=== PATIENT | male | born 1960 | race Hispanic/Latino ===

== ENCOUNTER 2019-04-29 20:44 | Emergency (ER) | payer OTHER ==
[2019-04-29] MEDS ORDERED: ATIVAN ONE (20:51)
[2019-04-29 21:08] LABS: Basophils % (Auto) 0.2 % (0.0-1.8); Eosinophils # (Auto) 0.2 K/mm3 (0.0-0.4); Eosinophils % (Auto) 2.6 % (0.0-4.3); Hematocrit 47.7 % (35.5-45.6); Hemoglobin 16.1 gm/dl (11.8-15.2); Lymphocytes # (Auto) 2.5 K/mm3 (1.2-5.4); Lymphocytes % (Auto) 27.3 % (13.4-35.0); Mean Corpuscular HGB Conc 34 % (32-34); Mean Corpuscular Volume 102 fl (84-94); Monocytes # (Auto) 0.9 K/mm3 (0.0-0.8); Monocytes % (Auto) 9.4 % (0.0-7.3); Platelet Count 297 K/mm3 (140-440); Red Cell Distribution Width 14.1 % (13.2-15.2)
[2019-04-29] MEDS ORDERED: ATIVAN IM ONE (21:10)
[2019-04-29 21:19] LABS: INR 1.11 (0.87-1.13)
[2019-04-29 21:28] LABS: BUN/Creatinine Ratio 15; Blood Urea Nitrogen 17 mg/dL (9-20); Calcium 10.6 mg/dL (8.4-10.2); Hemolysis Index 3
--- NOTE | 2019-04-29 21:40 | Emergency Department Report ---
ED Altered Mental Status HPI - General Chief Complaint: Neuro Symptoms/Deficit Stated Complaint: ALTERED MENTAL STATUS Time Seen by Provider: 04/29/19 20:52 Source: EMS Mode of arrival: Stretcher Limitations: Altered Mental Status - History of Present Illness Initial Comments: Mr. vaca is a 58-year-old male was brought from a retail center for altered mental status. He walked into the clothing store after arriving by private auto. After walking down the aisle, store personally noticed abnormal behavior., He became less responsive. EMS noticed jerking movements. He's been nonverbal. EMS also observed diaphoresis. Normal blood glucose in route. Patient does not provide any history due to altered mental status. MD Complaint: altered mental status, decreased responsiveness -: Sudden Severity: severe Consistency of Symptoms: unknown Context: unknown Associated Symptoms: other (unable to be obtained from patient due to altered mental status) - Related Data Allergies Allergy/AdvReac Type Severity Reaction Status Date / Time No Known Allergies Allergy Unverified 04/29/19 20:49 ED Review of Systems ROS: Stated complaint: ALTERED MENTAL STATUS Other details as noted in HPI Comment: Unobtainable due to pts medical conditions (altered mental status) ED Past Medical Hx - Past Medical History Additional medical history: unknown - Surgical History Additional Surgical History: unknown - Social History Smoking Status: Unknown if ever smoked ED Physical Exam - General Limitations: Altered Mental Status General appearance: other (keeps eyes closed, jerking sensation in the extremities diaphoretic) - Head Head exam: Present: atraumatic, normocephalic - Eye Eye exam: Absent: scleral icterus, conjunctival injection - ENT ENT exam: Present: mucous membranes dry - Neck Neck exam: Present: normal inspection, full ROM. Absent: tenderness, meningismus - Respiratory Respiratory exam: Present: normal lung sounds bilaterally. Absent: respiratory distress, wheezes, rales, rhonchi - Cardiovascular Cardiovascular Exam: Present: normal rhythm, tachycardia, normal heart sounds - GI/Abdominal GI/Abdominal exam: Present: soft. Absent: distended, tenderness, guarding, rebound, rigid - Extremities Exam Extremities exam: Present: other (moves all extremities with semi-purposeful movement kicks his legs rolls around in bed) - Neurological Exam Neurological exam: Present: altered, other (yells obscenities with venipuncture) - Psychiatric Psychiatric exam: Present: agitated - Skin Skin exam: Present: diaphoretic ED Course Vital Signs 04/29/19 04/29/19 04/29/19 20:52 20:55 21:00 Temperature 99.2 F Pulse Rate 102 H 75 Respiratory 19 22 Rate Blood Pressure 179/112 O2 Sat by Pulse 99 98 97 Oximetry 04/29/19 04/29/19 04/29/19 21:18 21:30 22:02 Temperature Pulse Rate 72 80 99 H Respiratory 18 19 20 Rate Blood Pressure 191/108 191/108 O2 Sat by Pulse 96 98 99 Oximetry 04/29/19 04/29/19 04/29/19 22:16 22:30 22:46 Temperature Pulse Rate 74 76 107 H Respiratory 14 19 25 H Rate Blood Pressure 161/88 175/97 175/97 O2 Sat by Pulse 97 99 99 Oximetry 04/29/19 23:00 Temperature Pulse Rate 97 H Respiratory 21 Rate Blood Pressure 161/88 O2 Sat by Pulse 99 Oximetry - Lab Data Result diagrams: 04/29/19 21:00 04/29/19 21:00 Lab Results 04/29/19 04/29/19 04/29/19 Range/Units 20:56 21:00 21:00 WBC 9.2 (4.5-11.0) K/mm3 RBC 4.70 (3.65-5.03) M/mm3 Hgb 16.1 H (11.8-15.2) gm/dl Hct 47.7 H (35.5-45.6) % MCV 102 H (84-94) fl MCH 34 H (28-32) pg MCHC 34 (32-34) % RDW 14.1 (13.2-15.2) % Plt Count 297 (140-440) K/mm3 Lymph % (Auto) 27.3 (13.4-35.0) % [place] % (Auto) 9.4 H (0.0-7.3) % Eos % (Auto) 2.6 (0.0-4.3) % Baso % (Auto) 0.2 (0.0-1.8) % Lymph # 2.5 (1.2-5.4) K/mm3 [place] # 0.9 H (0.0-0.8) K/mm3 Eos # 0.2 (0.0-0.4) K/mm3 Baso # 0.0 (0.0-0.1) K/mm3 Seg Neutrophils % 60.5 (40.0-70.0) % Seg Neutrophils # 5.6 (1.8-7.7) K/mm3 PT 14.0 (12.2-14.9) Sec. INR 1.11 (0.87-1.13) APTT 44.5 H (24.2-36.6) Sec. Thrombin Time (15.1-19.6) Sec. Sodium (137-145) mmol/L Potassium (3.6-5.0) mmol/L Chloride (98-107) mmol/L Carbon Dioxide (22-30) mmol/L Anion Gap mmol/L BUN (9-20) mg/dL Creatinine (0.8-1.5) mg/dL Estimated GFR ml/min BUN/Creatinine Ratio % Glucose (75-100) mg/dL POC Glucose 139 H (70-105) Calcium (8.4-10.2) mg/dL Troponin T (0.00-0.029) ng/mL Urine Opiates Screen Urine Methadone Screen Ur Barbiturates Screen Ur Phencyclidine Scrn Ur Amphetamines Screen U Benzodiazepines Scrn Urine Cocaine Screen U Marijuana (THC) Screen Plasma/Serum Alcohol (0-0.07) % 04/29/19 04/29/19 04/29/19 Range/Units 21:00 21:00 22:05 WBC (4.5-11.0) K/mm3 RBC (3.65-5.03) M/mm3 Hgb (11.8-15.2) gm/dl Hct (35.5-45.6) % MCV (84-94) fl MCH (28-32) pg MCHC (32-34) % RDW (13.2-15.2) % Plt Count (140-440) K/mm3 Lymph % (Auto) (13.4-35.0) % [place] % (Auto) (0.0-7.3) % Eos % (Auto) (0.0-4.3) % Baso % (Auto) (0.0-1.8) % Lymph # (1.2-5.4) K/mm3 [place] # (0.0-0.8) K/mm3 Eos # (0.0-0.4) K/mm3 Baso # (0.0-0.1) K/mm3 Seg Neutrophils % (40.0-70.0) % Seg Neutrophils # (1.8-7.7) K/mm3 PT (12.2-14.9) Sec. INR (0.87-1.13) APTT (24.2-36.6) Sec. Thrombin Time 14.3 L (15.1-19.6) Sec. Sodium 142 (137-145) mmol/L Potassium 4.3 (3.6-5.0) mmol/L Chloride 104.4 (98-107) mmol/L Carbon Dioxide 21 L (22-30) mmol/L Anion Gap 21 mmol/L BUN 17 (9-20) mg/dL Creatinine 1.1 (0.8-1.5) mg/dL Estimated GFR > 60 ml/min BUN/Creatinine Ratio 15 % Glucose 134 H (75-100) mg/dL POC Glucose (70-105) Calcium 10.6 H (8.4-10.2) mg/dL Troponin T < 0.010 (0.00-0.029) ng/mL Urine Opiates Screen Urine Methadone Screen Ur Barbiturates Screen Ur Phencyclidine Scrn Ur Amphetamines Screen U Benzodiazepines Scrn Urine Cocaine Screen U Marijuana (THC) Screen Plasma/Serum Alcohol < 0.01 (0-0.07) % 04/29/19 Range/Units 22:13 WBC (4.5-11.0) K/mm3 RBC (3.65-5.03) M/mm3 Hgb (11.8-15.2) gm/dl Hct (35.5-45.6) % MCV (84-94) fl MCH (28-32) pg MCHC (32-34) % RDW (13.2-15.2) % Plt Count (140-440) K/mm3 Lymph % (Auto) (13.4-35.0) % [place] % (Auto) (0.0-7.3) % Eos % (Auto) (0.0-4.3) % Baso % (Auto) (0.0-1.8) % Lymph # (1.2-5.4) K/mm3 [place] # (0.0-0.8) K/mm3 Eos # (0.0-0.4) K/mm3 Baso # (0.0-0.1) K/mm3 Seg Neutrophils % (40.0-70.0) % Seg Neutrophils # (1.8-7.7) K/mm3 PT (12.2-14.9) Sec. INR (0.87-1.13) APTT (24.2-36.6) Sec. Thrombin Time (15.1-19.6) Sec. Sodium (137-145) mmol/L Potassium (3.6-5.0) mmol/L Chloride (98-107) mmol/L Carbon Dioxide (22-30) mmol/L Anion Gap mmol/L BUN (9-20) mg/dL Creatinine (0.8-1.5) mg/dL Estimated GFR ml/min BUN/Creatinine Ratio % Glucose (75-100) mg/dL POC Glucose (70-105) Calcium (8.4-10.2) mg/dL Troponin T (0.00-0.029) ng/mL Urine Opiates Screen Presumptive negative Urine Methadone Screen Presumptive negative Ur Barbiturates Screen Presumptive negative Ur Phencyclidine Scrn Presumptive negative Ur Amphetamines Screen Presumptive positive U Benzodiazepines Scrn Presumptive negative Urine Cocaine Screen Presumptive negative U Marijuana (THC) Screen Presumptive negative Plasma/Serum Alcohol (0-0.07) % - Radiology Data Radiology results: report reviewed CT head: No acute process according to radiology report - Medical Decision Making Upon arrival, code Stroke was activated due to nonverbal status. After my evaluation I felt the patient had acute metabolic encephalopathy more so than CVA. I discussed case with neurology. I canceled code stroke. He required sedation with IM lorazepam and haldol. Jerking motion stopped prior to medication administration. UDS is positive for methamphetamine. Methamphetamine intoxication with explain patient's presentation and hyperactive delirium. Awaiting sobriety. Will be discharged home once he is awake. When asked if he used drugs today he stated "not yet" Labs CT otherwise unremarkable. CBC chemistry within normal limits. Critical Care Time: Yes Critical care time in (mins) excluding proc time.: 40 Critical care attestation.: If time is entered above; I have spent that time in minutes in the direct care of this critically ill patient, excluding procedure time. 40 minutes of critical care time excluding procedures were used in the care of the patient. Patient required multiple assessments and interventions. I reviewed the electronic medical record. I spoke with consultants involved in the care of the patient. ED Disposition Clinical Impression: Methamphetamine intoxication, Acute drug intoxication with delirium Disposition: DC-01 TO HOME OR SELFCARE Is pt being admited?: No Does the pt Need Aspirin: No Condition: Stable Instructions: Methamphetamine Abuse (ED) Referrals: KEVIN PÉREZ MD [Primary Care Provider] - 3-5 Days
[2019-04-29 21:49] LABS: Partial Thromboplastin Time 44.5 Sec. (24.2-36.6)
[2019-04-29] MEDS ORDERED: HALDOL IM ONE (21:53)
[2019-04-29] MEDS ORDERED: NACL 0.9% 1000 ML 1,000 ML IV ONE (22:01)
--- NOTE | 2019-04-29 22:42 | Cat Scan Report ---
CT head/brain wo con INDICATION / CLINICAL INFORMATION: Neurologic deficits <6hrs or sx present upon awakening. TECHNIQUE: All CT scans at this location are performed using CT dose reduction for ALARA by means of automated e xposure control. COMPARISON: None available. FINDINGS: There is mild generalized cerebral atrophy. No focal lesion or mass effect is seen. There is no evide nce of intracranial hemorrhage or major vessel occlusion. The visualized paranasal sinuses and mastoi d air cells are clear. IMPRESSION: No acute abnormality is identified. Signer Name: Dayne Benitez MD Signed: 04/29/2019 10:38 PM Workstation Name: [id number]
[2019-04-29 23:06] LABS: Benzodiazepines Screen,Urine PRESUMPTIVE NEGATIVE; Cannabinoid Screen,Urine PRESUMPTIVE NEGATIVE; Cocaine Screen,Urine PRESUMPTIVE NEGATIVE; Methadone Screen,Urine PRESUMPTIVE NEGATIVE; Opiate Screen,Urine PRESUMPTIVE NEGATIVE
[2019-04-29 23:45] LABS: Amphetamine Screen,Urine PRESUMPTIVE POSITIVE
[2019-04-30 04:56] VITALS: BP 138/86
== END 2019-04-30 02:30 | disposition home or self-care (01) ==
LOC: ED 20:44
DX: F15.121 Other stimulant abuse with intoxication delirium (principal)
CPT/HCPCS: 36415; 70450; 80048; 80307; 82962; 84484; 85025; 85610; 85670; 85730; 93005; 93010; 96360; 96372; 99291; G0480; J1630; J2060; J7030; 80320